=== PATIENT | male | born 1965 | race Caucasian/White ===

== ENCOUNTER → 2017-11-23 10:04 | Outpatient (POV) | payer OTHER, SELFPAY | PROVIDERS: PCP Orthopaedic Surgery; Visit Provider Specialist | DX: R20.0 Anesthesia of skin (principal); R20.2 Paresthesia of skin; G56.03 Carpal tunnel syndrome, bilateral upper limbs | CPT/HCPCS: 95886; 95910 ==

== ENCOUNTER → 2019-06-02 11:23 | Outpatient (CLI) | payer OTHER, SELFPAY ==
[2019-06-02 13:34] LABS: Alanine Aminotransferase 89 U/L (12-78); Albumin Level 4.2 gm/dL (3.4-5.0); Albumin/Globulin Ratio 1.2 (1.1-1.8); Alkaline Phosphatase 79 U/L (46-116); Anion Gap 9.7 mEq/L (5-15); Aspartate Amino Transferase 65 U/L (15-37); Bilirubin,Total 0.6 mg/dL (0.2-1.0); Blood Urea Nitrogen 8 mg/dL (7-18); Calcium 9.2 mg/dL (8.5-10.1); Carbon Dioxide 29 mmol/L (21.0-32.0); Chloride 99 mmol/L (98-107); Chol/HDL Ratio 7.8 (1-3.5); Cholesterol 241 mg/dL (140-200); Creatinine,Serum 0.82 mg/dL (0.70-1.30); Estimated Glomerular Filt Rate 98 ml/min (>60); GFR (African American) 119 ML/MIN (>60); Globulin 3.5 gm/dl (1.3-3.2); Glucose 102 mg/dL (74-106); HDL Cholesterol 31 mg/dL (27-67); Potassium 4.7 mmoL/L (3.5-5.1); Sodium 133 mmol/L (136-145); Total Protein,Serum 7.7 gm/dL (6.4-8.2); Triglycerides 853 mg/dL (30-200)
== END ==
PROVIDERS: Visit Provider Internal Medicine Adolescent Medicine
DX: E78.01 Familial hypercholesterolemia (principal); I10 Essential (primary) hypertension
CPT/HCPCS: 36415; 80053; 80061

== ENCOUNTER → 2019-06-16 09:11 | Outpatient (CLI) | payer OTHER, SELFPAY ==
[2019-06-16 10:17] LABS: Alanine Aminotransferase 69 U/L (12-78); Albumin Level 4.2 gm/dL (3.4-5.0); Alkaline Phosphatase 76 U/L (46-116); Aspartate Amino Transferase 27 U/L (15-37); Bilirubin,Direct 0.1 mg/dL (0.0-0.2); Bilirubin,Indirect 0.6 mg/dL (0.0-0.9); Bilirubin,Total 0.7 mg/dL (0.2-1.0); Chol/HDL Ratio 6.2 (1-3.5); Cholesterol 204 mg/dL (140-200); HDL Cholesterol 33 mg/dL (27-67); Total Protein,Serum 8.3 gm/dL (6.4-8.2)
[2019-06-16 10:18] LABS: Triglycerides 488 mg/dL (30-200)
== END ==
PROVIDERS: Visit Provider Internal Medicine Cardiovascular Disease
DX: I25.10 Atherosclerotic heart disease of native coronary artery without angina pectoris (principal); I10 Essential (primary) hypertension; E78.1 Pure hyperglyceridemia
CPT/HCPCS: 36415; 80061; 80076

== ENCOUNTER → 2019-06-21 09:15 | Outpatient (CLI) | payer OTHER, SELFPAY ==
--- NOTE | 2019-06-21 09:19 | CA_ITS ---
APPROVED REPORT EXAM: Comprehensive 2D, Doppler, and color-flow Echocardiogram Tax Director: Indy Faust CRT Ht: 6 ft 2 in Wt: 214lbs BSA: 2.24 BP: 133/84 mmHg Indications: Hyperlipidemia, Hypertension/HDD, CAD, stents 08, hx sinus ca, radiation, chemo 2D Dimensions LVOT 1.90 cm (M/F) 1.5-2.5 M-Mode Dimensions RVDd 2.80 cm (0.9-2.6) LA Diam 4.10 cm (1.9-4.0) LVDd 4.20 cm (3.5-5.7) Ao Diam 3.40 cm (2.0-3.7) LVDs 3.00 cm (3.5-5.7) AV Cusp 2.10 cm (1.5-2.6) IVSd 1.80 cm (0.6-1.1) PWd 1.20 cm (0.6-1.1) EF (Teich) 55.50% FS 28.60% EDV (Teich) 78.60 mL ESV (Teich) 35.00 mL LV Diastology E/A Ratio 0.80 MED E' 8.48 (< 7 cm/sec) E'/MED E' Ratio 7.90 (>14) LAT E' 9.07 (<10 cm/sec) E/LAT E' Ratio 7.30 (>14) Aortic Valve AoV Peak Ran. 136.00 (50-130 cm/s) AO Peak GR. 7.00 mmHg Mitral Valve MV E Max Ran. 66.60 (40-130 cm/s) MV A Velocity 88.40 (40-130 cm/s) E/A Ratio 0.80 Pulmonary Valve CA End VMAX 2.47 cm/s PA Accel Time 187.00 (>120 msec) Tricuspid Valve TR P. Velocity 239.00 cm/s RAP Estimate 10.00 mmHg RVSP 33.00 mmHg Left Ventricle Left atrium is mildly enlarged, left ventricle is normal size, mild concentric left ventricular hypertrophy, visually estimated ejection fraction 55% with no regional wall motion abnormality, grade 1 diastolic dysfunction seen without tissue Doppler evidence of raise left atrial pressure. Right Ventricle Right atrium and right ventricular normal size and contractility. Aortic Valve Aortic valve is minimally thickened and fibrosed. There is no aortic stenosis or aortic insufficiency. Mitral Valve Mitral valve is grossly normal, there is mild mitral regurgitation. Tricuspid Valve Tricuspid valve is grossly normal, there is mild tricuspid regurgitation. Tricuspid regurgitation jet velocity is inadequate for calculation of the right ventricular systolic pressure. Pulmonic Valve Pulmonic valve is poorly visualized. Great Vessels Aortic root is normal size. Pericardium No significant pericardial effusion noted. Conclusion 1. Mildly enlarged left atrium, normal left ventricular size, mild concentric left ventricular hypertrophy, visually estimated ejection fraction 55% with no regional wall motion abnormality. Grade 1 diastolic dysfunction seen without tissue Doppler evidence of raise left atrial pressure. 2. Mild mitral and tricuspid regurgitation. 3. No significant pericardial effusion noted. Electronically signed by : Willie Frank, 06/24/2019 10:52:40
--- NOTE | 2019-06-21 09:22 | XR_ITS ---
PROCEDURE: XR ANKLE WT BEARING LT MIN 3V CLINICAL INDICATION: bilateral foot pain Left ankle pain COMPARISON: No exams were available for comparison FINDINGS: No fracture or dislocation. There is slight decrease in the joint space. Otherwise negative IMPRESSION: . minimal osteoarthritic change Dictated by: Joel Leach MD 06/21/2019 18:11 Electronically signed by Joel Leach MD in [place] 06/21/2019 18:11
--- NOTE | 2019-06-21 09:22 | XR_ITS ---
PROCEDURE: XR ANKLE WT BEARING RT MIN 3V CLINICAL INDICATION: bilateral foot pain Ankle pain COMPARISON: No exams were available for comparison FINDINGS: No fracture, dislocation, lytic change, or blastic change evident. No significant degenerative change IMPRESSION: Negative right ankle Dictated by: Joel Leach MD 06/21/2019 18:11 Electronically signed by Joel Leach MD in [place] 06/21/2019 18:11
--- NOTE | 2019-06-21 09:22 | XR_ITS ---
PROCEDURE: XR FOOT WT BEARING LT 3V CLINICAL INDICATION: bilateral foot pain The in the COMPARISON: FTR3 FOOT-RT-3 VIEWS from 04/15/2016 FINDINGS: No fracture or dislocation. No lytic or blastic change. There is normal mineralization. The joint spaces are well-preserved. No significant degenerative/arthritic changes. No erosive changes evident. Other findings:There is mild pes planus. Increased density is present along the medial aspect of the nail bed of the great toe IMPRESSION: Pes planus otherwise negative Dictated by: Joel Leach MD 06/21/2019 18:18 Electronically signed by Joel Leach MD in [place] 06/21/2019 18:18
--- NOTE | 2019-06-21 09:22 | XR_ITS ---
PROCEDURE: XR FOOT WT BEARING RT 3V CLINICAL INDICATION: bilateral foot pain Foot pain COMPARISON: FTR3 FOOT-RT-3 VIEWS from 04/15/2016 FINDINGS: No fracture or dislocation. No lytic or blastic change. There is normal mineralization. The joint spaces are well-preserved. No significant degenerative/arthritic changes. No erosive changes evident.. Small rounded area of calcification is present the talonavicular joint dorsal medially nonspecific Other findings:There is mild pes planus. There is increased density along the nail bad medially at the great toe IMPRESSION: No acute finding. Mild pes planus Dictated by: Joel Leach MD 06/21/2019 18:13 Electronically signed by Joel Leach MD in [place] 06/21/2019 18:13
== END ==
PROVIDERS: Visit Provider Internal Medicine Cardiovascular Disease
DX: I25.10 Atherosclerotic heart disease of native coronary artery without angina pectoris (principal); E78.5 Hyperlipidemia, unspecified; I10 Essential (primary) hypertension; M79.672 Pain in left foot; M79.671 Pain in right foot; M25.572 Pain in left ankle and joints of left foot; M25.571 Pain in right ankle and joints of right foot; Z95.5 Presence of coronary angioplasty implant and graft
CPT/HCPCS: 73610; 73630; 93306

== ENCOUNTER → 2019-07-15 09:29 | Outpatient (CLI) | payer OTHER, SELFPAY ==
[2019-07-15 09:58] LABS: Alanine Aminotransferase 51 U/L (12-78); Alkaline Phosphatase 72 U/L (46-116); Aspartate Amino Transferase 28 U/L (15-37); Bilirubin,Direct 0.2 mg/dL (0.0-0.2); Bilirubin,Indirect 0.6 mg/dL (0.0-0.9); Bilirubin,Total 0.8 mg/dL (0.2-1.0); Chol/HDL Ratio 4.5 (1-3.5); Cholesterol 172 mg/dL (140-200); HDL Cholesterol 38 mg/dL (27-67); Total Protein,Serum 7.8 gm/dL (6.4-8.2)
[2019-07-15 10:07] LABS: Triglycerides 434 mg/dL (30-200)
== END ==
PROVIDERS: Visit Provider Internal Medicine Cardiovascular Disease
DX: E78.5 Hyperlipidemia, unspecified (principal); I10 Essential (primary) hypertension; I25.10 Atherosclerotic heart disease of native coronary artery without angina pectoris; Z95.5 Presence of coronary angioplasty implant and graft
CPT/HCPCS: 36415; 80061; 80076

== ENCOUNTER → 2019-11-21 14:43 | Outpatient (CLI) | payer OTHER, SELFPAY ==
[2019-11-21 17:31] LABS: Alanine Aminotransferase 63 U/L (12-78); Alkaline Phosphatase 71 U/L (46-116); Aspartate Amino Transferase 39 U/L (15-37); Bilirubin,Direct 0.2 mg/dL (0.0-0.2); Bilirubin,Indirect 0.4 mg/dL (0.0-0.9); Bilirubin,Total 0.6 mg/dL (0.2-1.0); Chol/HDL Ratio 4.4 (1-3.5); Cholesterol 123 mg/dL (140-200); HDL Cholesterol 28 mg/dL (27-67); Total Protein,Serum 7.3 g/dL (6.4-8.2)
[2019-11-21 17:43] LABS: Triglycerides 459 mg/dL (30-200)
== END ==
PROVIDERS: Physician Assistant; Visit Provider Internal Medicine Cardiovascular Disease
DX: E78.5 Hyperlipidemia, unspecified (principal); F10.20 Alcohol dependence, uncomplicated; I10 Essential (primary) hypertension; I25.10 Atherosclerotic heart disease of native coronary artery without angina pectoris; R53.83 Other fatigue; Z95.5 Presence of coronary angioplasty implant and graft
CPT/HCPCS: 36415; 80061; 80076

== ENCOUNTER → 2020-05-14 12:53 | Outpatient (CLI) | payer OTHER, SELFPAY ==
[2020-05-14 12:57] LABS: Adenovirus,PCR Not Detected (NotDetected); Bordetella Pertussis Not Detected (NotDetected); Chlamydophila Pneumoniae, PCR Not Detected (NotDetected); Coronavirus 229E Not Detected (NotDetected); Coronavirus NL63 Not Detected (NotDetected); Coronavirus OC43 Not Detected (NotDetected); Coronovirus HKU1,PCR Not Detected (NotDetected); Human Metapneumovirus Not Detected (NotDetected); Influenza A, PCR Not Detected (NotDetected); Influenza AH1, 2009 Not Detected (NotDetected); Influenza AH1, PCR Not Detected (NotDetected); Influenza AH3,PCR Not Detected (NotDetected); Influenza B, PCR Not Detected (NotDetected); Mycoplasma Pneumoniae, PCR Not Detected (NotDetected); Parainfluenza 1, PCR Not Detected (NotDetected); Parainfluenza 2, PCR Not Detected (NotDetected); Parainfluenza 3, PCR Not Detected (NotDetected); Parainfluenza 4, PCR Not Detected (NotDetected); Respiratory Syncytial Virus Not Detected (NotDetected)
--- NOTE | 2020-05-14 13:08 | XR_ITS ---
PROCEDURE: XR CHEST 2V CLINICAL HISTORY: BRONCHOPNEUMONIA,SINUSITIS,EXPOSURE TO COVID Cough COMPARISON: No exams were available for comparison FINDINGS: The cardiomediastinal silhouette and pulmonary vascularity are within normal limits. The lungs are clear without infiltrates, suspicious nodules, or pleural effusions. No acute bony abnormalities. IMPRESSION: No acute findings. Dictated by: Joel Leach MD 05/14/2020 14:36 Electronically signed by Joel Leach MD in [place] 05/14/2020 14:36
[2020-05-14 13:15] LABS: Basophils # 0.1 K/mm3 (0-0.2); Basophils % 0.9 % (0.1-2.0); Eosinophils # 0.3 K/mm3 (0.0-0.4); Eosinophils % 4.5 % (0.1-12.0); Hematocrit 42.4 % (42.0-52.0); Hemoglobin 15.2 g/dL (14.1-18.0); Lymphocytes # 0.9 K/mm3 (0.7-4.5); Lymphocytes % 15.1 % (10-50); Mean Corpuscular HGB Conc 35.9 g/dL (31.8-35.4); Mean Corpuscular Hemoglobin 33.8 pg (27.0-31.2); Mean Corpuscular Volume 94.2 fl (80-94); Mean Platelet Volume 7.2 fl (7.4-10.4); Monocytes # 0.4 K/mm3 (0.1-1.0); Monocytes % 7.3 % (1.7-9.3); Neutrophils # 4.1 K/mm3 (1.8-7.8); Neutrophils % 72.2 % (37.0-80.0); Platelet Count 276 K/mm3 (142-424); Red Cell Distribution Width 13.2 % (11.5-17.5); White Blood Count 5.7 K/mm3 (4.8-10.8)
[2020-05-14 13:35] LABS: Alanine Aminotransferase 60 U/L (12-78); Albumin Level 4.5 g/dl (3.5-5.0); Albumin/Globulin Ratio 1.5 (1.1-1.8); Alkaline Phosphatase 91 U/L (38-126); Anion Gap 14.9 mEq/L (5-15); Aspartate Amino Transferase 53 U/L (17-59); Bilirubin,Total 0.6 mg/dl (0.2-1.3); Blood Urea Nitrogen 9 mg/dl (9-20); Calcium 9.4 mg/dl (8.4-10.2); Carbon Dioxide 28 mmol/L (22.0-30.0); Chloride 99 mmol/L (98-107); Estimated Glomerular Filt Rate 88 ml/min (>60); GFR (African American) 106 ML/MIN (>60); Globulin 3.1 g/dL (1.3-3.2); Glucose 109 mg/dl (74-100); Potassium 4.9 mmoL/L (3.5-5.1); Sodium 137 mmol/L (136-145); Total Protein,Serum 7.6 g/dl (6.3-8.2)
[2020-05-14 17:12] LABS: Rhinovirus/Enterovirus Detected (NotDetected)
[2020-05-15 14:13] LABS: Covid-19 Nasal PCR Sendout Lex Not Detected
== END ==
PROVIDERS: Visit Provider Internal Medicine Adolescent Medicine
DX: Z20.828 Contact with and (suspected) exposure to other viral communicable diseases (principal); J18.0 Bronchopneumonia, unspecified organism; J01.01 Acute recurrent maxillary sinusitis; B97.19 Other enterovirus as the cause of diseases classified elsewhere
CPT/HCPCS: 36415; 71046; 80053; 85025; 87486; 87581; 87633; 87798; U0004

== ENCOUNTER → 2020-06-19 15:37 | Outpatient (CLI) | payer OTHER, SELFPAY ==
[2020-06-19 17:27] LABS: Alanine Aminotransferase 57 U/L (12-78); Albumin Level 4.3 g/dl (3.5-5.0); Alkaline Phosphatase 97 U/L (38-126); Aspartate Amino Transferase 47 U/L (17-59); Bilirubin,Indirect 0.5 mg/dL (0.0-0.9); Bilirubin,Total 0.5 mg/dl (0.2-1.3); Bilirubin,Unconjugated 0.5 mg/dL (0.0-1.1); Chol/HDL Ratio 5.8 (1-3.5); Cholesterol 208 mg/dl (140-200); HDL Cholesterol 36 mg/dl (40-60); Total Protein,Serum 7.2 g/dl (6.3-8.2)
[2020-06-19 17:38] LABS: Direct LDL Cholesterol 35.27 mg/dL (100-129)
[2020-06-19 18:00] LABS: Triglycerides 686 mg/dl (30-150)
== END ==
PROVIDERS: Visit Provider Nurse Practitioner Family
DX: E78.2 Mixed hyperlipidemia (principal); I25.10 Atherosclerotic heart disease of native coronary artery without angina pectoris; I10 Essential (primary) hypertension
CPT/HCPCS: 36415; 80061; 80076

== ENCOUNTER 2020-10-29 11:54 | Day surgery (SDC) | payer OTHER, SELFPAY ==
[2020-10-29] VITALS (13 sets, daily range): BP systolic 95–139; BP diastolic 53–96; PULSE 55–80; RESP 17–18; TEMP 36.7; O2SAT 94–98; BMI 28.0
--- NOTE | 2020-10-29 11:30 | IR_ITS ---
APPROVED REPORT Patient Location: Outpatient Food And Beverage Checker: JAY JAY Mcdaniels RT (R) PROCEDURES Left heart catheterization Left ventriculogram Selective coronary angiogram Drug-eluting stent deployment to the proximal dominant right coronary INDICATION Coronary artery disease, Unstable angina, Informed consent was obtained prior to the procedure. COMPLICATIONS NONE Estimated Blood Loss: LESS THAN 10 ML TECHNIQUE One percent lidocaine used to anesthetize the right anterior aspect of the wrist. The right radial artery was accessed via the Seldinger technique. A 6 Croatian sheath was placed in the right radial artery. 2.5 mg of verapamil, 800 mcg of nitroglycerin, 1mg Lidocaine and 5000 U Heparin were given through the arterial sheath. The trap catheter was also used to perform left heart catheterization, left ventriculogram and selective coronary angiogram. At the end of the diagnostic angiogram therapeutic heparin was administered giving a therapeutic ACT. And I Solange right guide catheter was used to intubate the right coronary artery and a BMW wire was placed distally. A 3 mm x 15 mm resolute lloyd stent was deployed at 20 jennie reducing the severe in-stent restenotic lesion to 0%. LEWIS-3 flow was present before and after the procedure. At the end the procedure the apparatus was removed the sheath was removed good hemostasis was achieved using TR banding patient was transferred to the postop holding area stable condition ANGIOGRAPHIC RESULTS The left main artery Normal The left anterior descending artery Is proximally normal and has a mid vessel 30 to 40% mostly eccentric stenosis The circumflex artery Is nondominant yet still large vessel with mid vessel 20 to 30% stenosis The right coronary artery Is a dominant vessel with a stent in the proximal to mid segment. The midportion of the stent has a 70% concentric in-stent restenotic lesion The VALIENTE ventriculogram reveals Normal 65% The left ventricular end-diastolic pressure 10 mmHg IMPRESSION Severe in-stent restenosis within the proximal dominant right coronary Successful stenting the proximal dominant right coronary severe disease reduced to 0% with 1 drug-eluting stent Mild to moderate mid LAD disease as described above Mild disease in the mid circumflex artery Normal ejection fraction Normal left ventricular end-diastolic pressure PLAN 1. Continue dual antiplatelet therapy 2. Avoidance of alcohol 3. Avoidance of tobacco products 4. LDL less than 55 5. Cardiac rehabilitation Electronically signed by : Mele Elena, 10/29/2020 14:39:47
[2020-10-29 12:08] LABS: Basophils # 0.1 K/mm3 (0-0.2); Basophils % 0.9 % (0.1-2.0); Eosinophils # 0.2 K/mm3 (0.0-0.4); Eosinophils % 2.8 % (0.1-12.0); Hematocrit 48.5 % (42.0-52.0); Hemoglobin 15.9 g/dL (14.1-18.0); Lymphocytes # 0.9 K/mm3 (0.7-4.5); Lymphocytes % 17.8 % (10-50); Mean Corpuscular HGB Conc 32.7 g/dL (31.8-35.4); Mean Corpuscular Hemoglobin 32.5 pg (27.0-31.2); Mean Corpuscular Volume 99.5 fl (80-94); Mean Platelet Volume 10.9 fl (7.4-10.4); Monocytes # 0.4 K/mm3 (0.1-1.0); Neutrophils # 3.8 K/mm3 (1.8-7.8); Neutrophils % 71.4 % (37.0-80.0); Platelet Count 294 K/mm3 (142-424); Red Blood Count 4.87 M/mm3 (4.60-6.20); Red Cell Distribution Width 13.8 % (11.5-17.5); White Blood Count 5.3 K/mm3 (4.8-10.8)
[2020-10-29 12:49] LABS: Anion Gap 12.5 mEq/L (5-15); Blood Urea Nitrogen 14 mg/dl (9-20); Calcium 9.8 mg/dl (8.4-10.2); Carbon Dioxide 29 mmol/L (22.0-30.0); Chloride 101 mmol/L (98-107); Creatinine Clearance Estimated 152 mL/min (50-200); Estimated Glomerular Filt Rate 101 ml/min (>60); GFR (African American) 122 ML/MIN (>60); Glucose 123 mg/dl (74-100); Potassium 4.5 mmoL/L (3.5-5.1); Sodium 138 mmol/L (136-145)
[2020-10-29 12:57] LABS: Coronavirus 19 IgG Antibody Negative (Negative); Coronavirus 19 IgM Antibody Negative (Negative)
[2020-10-29 15:32] LABS: CATHL Activated Clotting Time 336 SEC (74-125)
--- NOTE | 2020-10-29 16:20 | HMH.PHACLD ---
Jeremy Valdez has received discharge medication counseling on the following medications: PATIENT CURRENTLY IS TAKING LISINOPRIL 5 MG DAILY, ASPIRIN DR 81 MG DAILY, AND SIMVASTATIN 20 MG HS. MD STARTING BRILINTA 90 MG BID AT THIS TIME. MD NOT STARTING BETA NATALIE AT THIS TIME DUE TO LOW HR AND BP.
--- NOTE | 2020-10-29 18:35 | SUR.PHASEII ---
pt discharged after hours. 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 pt went home with tomorrows dose morning and night of brilinta and understands to take it and never miss a dose.
== END 2020-10-29 18:33 | disposition home or self-care (01) ==
LOC: CATHLAB 11:55
PROVIDERS: Urology; PCP Internal Medicine Adolescent Medicine; Visit Provider Internal Medicine
DX: I25.110 Atherosclerotic heart disease of native coronary artery with unstable angina pectoris (principal); T82.855A Stenosis of coronary artery stent, initial encounter; I10 Essential (primary) hypertension; E78.5 Hyperlipidemia, unspecified; Z79.82 Long term (current) use of aspirin; Z79.899 Other long term (current) drug therapy; Z88.8 Allergy status to other drugs, medicaments and biological substances
CPT/HCPCS: 36415; 80048; 85025; 85347; 86328; 92928; 93458; 99152; 99153; C1725; C1769; C1874; C9600; J1644; Q9967

== ENCOUNTER → 2021-02-05 10:50 | Outpatient (CLI) | payer OTHER, SELFPAY ==
[2021-02-05 11:57] LABS: Alanine Aminotransferase 33 U/L (12-78); Aspartate Amino Transferase 38 U/L (17-59); Bilirubin,Unconjugated 0.5 mg/dL (0.0-1.1)
[2021-02-05 11:58] LABS: Albumin Level 5.1 g/dl (3.5-5.0); Alkaline Phosphatase 70 U/L (38-126); Bilirubin,Direct 0.2 mg/dl (0.0-0.4); Bilirubin,Indirect 0.5 mg/dL (0.0-0.9); Bilirubin,Total 0.7 mg/dl (0.2-1.3); Chol/HDL Ratio 3.9 (1-3.5); Cholesterol 188 mg/dl (140-200); HDL Cholesterol 48 mg/dl (40-60); Total Protein,Serum 7.6 g/dl (6.3-8.2); Triglycerides 238 mg/dl (30-150); VLDL Cholesterol 48 mg/dL (0-40)
[2021-02-05 12:11] LABS: Direct LDL Cholesterol 83.12 mg/dL (100-129)
== END ==
PROVIDERS: Visit Provider Physician Assistant
DX: I11.9 Hypertensive heart disease without heart failure (principal); E11.9 Type 2 diabetes mellitus without complications
CPT/HCPCS: 36415; 80061; 80076

== ENCOUNTER → 2021-06-11 11:08 | Outpatient (CLI) | payer OTHER, SELFPAY ==
[2021-06-11 12:34] LABS: Prostate Specific Ag Screen 0.7 ng/ml (0.0-4.0)
== END ==
PROVIDERS: Visit Provider Urology
DX: Z12.5 Encounter for screening for malignant neoplasm of prostate (principal)
CPT/HCPCS: 36415; G0103

== ENCOUNTER → 2021-11-06 11:48 | Outpatient (CLI) | payer OTHER, SELFPAY ==
[2021-11-06 13:08] LABS: Alanine Aminotransferase 42 U/L (12-78); Albumin Level 4.8 g/dl (3.5-5.0); Alkaline Phosphatase 61 U/L (38-126); Aspartate Amino Transferase 52 U/L (17-59); Bilirubin,Direct 0.1 mg/dl (0.0-0.4); Bilirubin,Indirect 0.4 mg/dL (0.0-0.9); Bilirubin,Total 0.5 mg/dl (0.2-1.3); Bilirubin,Unconjugated 0.5 mg/dL (0.0-1.1); Chol/HDL Ratio 3.3 (1-3.5); Cholesterol 170 mg/dl (140-200); HDL Cholesterol 51 mg/dl (40-60); Total Protein,Serum 7.3 g/dl (6.3-8.2); Triglycerides 132 mg/dl (30-150); VLDL Cholesterol 26 mg/dL (0-40)
[2021-11-06 13:19] LABS: Direct LDL Cholesterol 82.64 mg/dL (100-129)
== END ==
PROVIDERS: Visit Provider Urology
DX: E78.2 Mixed hyperlipidemia (principal)
CPT/HCPCS: 36415; 80061; 80076

== ENCOUNTER → 2022-05-05 14:45 | Outpatient (CLI) | payer OTHER, SELFPAY ==
--- NOTE | 2022-05-05 14:50 | CT_ITS ---
FINAL REPORT TECHNIQUE: Thin section axial images were obtained through the paranasal sinuses without contrast. CLINICAL HISTORY: SINONASAL CARCINOMA,DIZZINESS COMPARISON: No prior FINDINGS: There are changes from frontal craniotomy. There has also been extensive sinus surgery. Portions of the nasal septum and nasal cavity have also been removed. There is hardware along the inferior right orbit and lateral right nasal bone. Hypodensities in the inferior frontal lobes bilaterally are likely chronic. There is soft tissue density within the frontal sinuses which may be related to prior surgery. An abnormal soft tissue mass cannot be excluded. There is mild mucoperiosteal thickening along the sphenoid sinus. There is cortical thickening of the facial bones along the sinuses which could be related to radiation therapy or other treatment for sinus carcinoma. There is a small amount of fluid within the left mastoid air cells. There is a small cutaneous nodule of the right parietal scalp on axial image 47 measuring 9 mm. This is nonspecific. The globes appear intact. Remaining soft tissues are without acute abnormality. IMPRESSION: 1. Extensive postoperative changes to the facial bones and sinuses in this patient with a history of sinus cancer. 2. Soft tissue density within the frontal sinuses may be related to surgery and packing. Residual or recurrent mass is not excluded. Recommend comparison with prior exams. Reviewed, Interpreted and Dictated by Leonor Mayo MD Transcribed by Arlette Briscoe Authenticated and [facility]
== END ==
PROVIDERS: PCP Internal Medicine Adolescent Medicine; Visit Provider Otolaryngology
DX: C31.9 Malignant neoplasm of accessory sinus, unspecified (principal); R42 Dizziness and giddiness
CPT/HCPCS: 70486

== ENCOUNTER → 2022-12-04 09:55 | Outpatient (CLI) | payer OTHER, SELFPAY ==
[2022-12-04 10:54] LABS: Alanine Aminotransferase 46 U/L (12-78); Albumin Level 4.6 g/dl (3.5-5.0); Alkaline Phosphatase 76 U/L (38-126); Aspartate Amino Transferase 41 U/L (17-59); Bilirubin,Direct 0.3 mg/dl (0.0-0.4); Bilirubin,Indirect 0.4 mg/dL (0.0-0.9); Bilirubin,Total 0.7 mg/dl (0.2-1.3); Bilirubin,Unconjugated 0.4 mg/dL (0.0-1.1); Chol/HDL Ratio 4.2 (1-3.5); Cholesterol 169 mg/dl (140-200); HDL Cholesterol 40 mg/dl (40-60); Total Protein,Serum 7.4 g/dl (6.3-8.2)
[2022-12-04 10:59] LABS: Triglycerides 447 mg/dl (30-150)
[2022-12-04 11:05] LABS: Direct LDL Cholesterol 65.64 mg/dL (100-129)
== END ==
PROVIDERS: PCP Internal Medicine Adolescent Medicine; Visit Provider Nurse Practitioner
DX: I11.9 Hypertensive heart disease without heart failure (principal); E78.1 Pure hyperglyceridemia; E78.2 Mixed hyperlipidemia; F10.20 Alcohol dependence, uncomplicated; I10 Essential (primary) hypertension; Z95.5 Presence of coronary angioplasty implant and graft
CPT/HCPCS: 36415; 80061; 80076

== ENCOUNTER → 2023-04-17 12:25 | Outpatient (CLI) | payer OTHER, SELFPAY ==
--- NOTE | 2023-04-17 12:25 | NM_ITS ---
APPROVED REPORT Exam: Nuclear Stress Test Indication: chest pain Patient Location: Outpatient Stress Tech: Estefania Lyles [place] Tech:Laura Zamora ABIAlex RT(R)(N) Ht: 6 ft 2 in Wt: 203 lbs HR: 83 bpm BP: 166/113 mmHg BSA: 2.19 m2 Rhythm: NSR TID: 1.11 BMI: 26.0 History: chest pain Procedure: Patient exercised on Major protocol 7:30 minutes and sec, resting heart rate 83 bpm, resting blood pressure 166/113 mmHg, with exercise maximum heart rate achived was 138 bpm which is 85 % of the maximum predicted heart rate and blood pressure was 187/104 mmHg. Test was stopped due to fatigue. Patient denied any complaint of chest pain. Patient has average exercise capacity, achieved 10.1 METs of workload on treadmill, the blood pressure response to exercise was normal. The patient was unable to lay on his abdomen for prone images. Cardiac Stress and Resting SPECT Images: Cardiac Stress and Resting SPECT images were obtained using technetium 99m Myoview 32.8 mCi stress and 10.55 mCi at rest. The patient was unable to lay on his abdomen for prone images. Prone images were therefore not obtained. This may affect the diagnostic interpretation of the study findings. Resting and stress imaging in supine position demonstrate no evidence of fixed or reversible perfusion defects. Gated imaging demonstrates a normal global and regional LV systolic function. LVEF is calculated at 66%. Conclusion: The patient was unable to lay on his abdomen for prone images. Prone images were therefore not obtained. This may affect the diagnostic interpretation of the study findings. Resting and stress imaging in supine position demonstrate no evidence of fixed or reversible perfusion defects. Gated imaging demonstrates a normal global and regional LV systolic function. LVEF is calculated at 66%. Electronically signed by : Em Steward, 04/25/2023 15:35:08
--- NOTE | 2023-04-17 12:25 | CA_ITS ---
APPROVED REPORT Exam: Exercise Treadmill Technologist: Estefania Lyles, Ht: 6 ft 3 in Wt: 210 lbs BSA: 2.24 m2 HR: 83 bpm BP: 166/113 mmHg Rhythm: NSR Medical History Medical History: HTN, Hyperlipidemia Medications: Lisinopril,,,,, Aspirin,,,,, Simvastatin,,,,, FeNOfibrate,,,,, LovasA,,,,, NanOCRYSTALIZED,,,,, Allergies: ATORVASTATIN Cardiac Risk Factors: HTN, Hyperlipidemia, Smoking Stress Test Details Test: Major HR Resting HR: 83 bpm Max Heart Rate (APMHR): 163 bpm Max HR Achieved: 138 bpm Target HR (85% APMHR): 139 bpm % of APMHR: 85 Recovery HR: 90 bpm HR response to stress: Normal HR response to stress BP Resting BP: 166.0/113 mmHg Max BP: 187/104 mmHg Recovery BP: 142.0/93.0 mmHg BP response to stress: Normal blood pressure response to stress. ECG Resting ECG: NSR, POSSIBLE INFERIOR AK OF INDETERMINATE AGE, EARLY REPOLARIZATION Stress ECG: <[address] DEPRESSION IN LATERAL LEADS Arrhythmia: NONE Recovery ECG: RETURN TO BASELINE WITHIN 3 MINUTES OF RECOVERY Recovery Arrhythmia: NONE Clinical Exercise duration: 07:30 min Highest Stage Achieved: Exercise capacity: 10.1 METs Overall Exercise Capacity for Age: Average Stress ECG Conclusion MAX HR: 138 % OF PM: 85% MAX BP: 187/104 METS: 10.1 THE PATIENT WAS ABLE TO EXERCISE FOR 7M, 30 S, ACHIEVING A TOTAL OF 10.1 METS. HE HAS AN AVERAGE EXERCISE CAPACITY COMPARED TO AGE AND SEX MATCHEED PEERS. HE HAS A NORMAL HR AND BP RESPONSE TO EXERCISE. TEST STOPPED DUE TO: SOA, LEG FATIGUE. HE DENIED ANY CHEST PAIN BASELINE ECG DEMONSTRATES A NORMAL SINUS RHYTHM, T-WAVE CHANGES IN THE INFERIOR LEADS, EARLY REPOLARIZATION PATTERN AT PEAK STRESS, THERE WAS < 1MM UPSLOPING ST DEPRESSION IN THE LATERAL LEADS. THESE FINDINGS ARE NON-SPECIFIC, BUT MAY REPRESENT POSSIBLE ISCHEMIA. CONCLUSION POSSIBLE ISCHEMIA IS PRESENT ON ECG STRESS TEST MYOVIEW IMAGES REPORTED SEPARATELY Test Summary REST . . . . . . . Standing REST . . . . . . . Sitting REST 03:49 0.0 0.0 83 . 166/113 . . Stage 1 01:00 10.0 1.7 101 . . . . Stage 1 02:00 10.0 1.7 109 . . . . Stage 1 03:00 10.0 1.7 108 . 168/ 98 . . Stage 2 01:00 12.0 2.5 116 . . . . Stage 2 02:00 12.0 2.5 120 . . . . Stage 2 03:00 12.0 2.5 122 . 180/ 96 . . Stage 3 01:00 14.0 3.4 132 . . . . Stage 3 01:30 14.0 3.4 136 . . . Stop exercise at 07:30 RECOVERY 01:00 0.0 0.0 120 . . . . RECOVERY 02:00 0.0 0.0 102 . 187/104 . . RECOVERY 03:00 0.0 0.0 96 . 154/ 95 . . RECOVERY 04:00 0.0 0.0 90 . 154/ 95 . . RECOVERY 05:00 0.0 0.0 90 . 142/ 93 . . RECOVERY 05:19 0.0 0.0 87 . 142/ 93 . . Electronically signed by : Em Steward, 04/25/2023 15:30:55
== END ==
PROVIDERS: PCP Internal Medicine Adolescent Medicine; Visit Provider Physician Assistant
DX: R07.89 Other chest pain (principal); I25.10 Atherosclerotic heart disease of native coronary artery without angina pectoris; I10 Essential (primary) hypertension; E78.1 Pure hyperglyceridemia; E78.5 Hyperlipidemia, unspecified; F10.20 Alcohol dependence, uncomplicated; Z95.5 Presence of coronary angioplasty implant and graft
CPT/HCPCS: 78452; 93017; A9502

== ENCOUNTER 2023-11-21 04:22 | Emergency (ER) | payer OTHER, SELFPAY ==
[2023-11-21 04:24] VITALS: BP 127/84; PULSE 113; RESP 22; TEMP 37.6; O2SAT 92; BMI 28.8
[2023-11-21 04:32] LABS: Coronavirus 19, PCR Not Detected (NotDetected); Influenza A, PCR Not Detected (NotDetected); Influenza B, PCR Not Detected (NotDetected)
--- NOTE | 2023-11-21 04:46 | ED_ITS ---
Discharge Plan Disposition Patient Disposition: Home, Self-Care Condition: Good Prescriptions Prescriptions: New knufhfescbcjqct-cwjyrmugi-BV [Bromfed DM] 2-30-10 mg/5 mL syrup 5 ml PO Q6H PRN (Reason: cold symptoms) Qty: 118 0RF cetirizine [Zyrtec] 10 mg tablet 10 mg PO DAILY Qty: 30 0RF fluticasone propionate [Flonase Allergy Relief] 50 mcg/actuation spray,suspension 1 spray intranasal BID Qty: 16 0RF Rx Instructions: administer into each nostril No Action mupirocin 2 % ointment 1 applic TP BID Qty: 15 1RF Rx Instructions: Apply to affected area up to twice daily aspirin 325 mg tablet 325 mg PO DAILY simvastatin 20 mg tablet See Rx Instructions .ROUTE .COMPLEX Qty: 90 1RF Dose Instruction: TAKE 1 TABLET BY MOUTH DAILY Rx Instructions: TAKE 1 TABLET BY MOUTH DAILY lisinopril 5 mg tablet 5 mg PO DAILY Qty: 90 3RF fenofibrate nanocrystallized 48 mg tablet 48 mg PO DAILY Qty: 30 11RF omega-3 acid ethyl esters [Lovaza] 1 gram capsule 2 cap PO BID Qty: 180 3RF Referrals Follow up/Referrals: James Gipson MD [Primary Care Provider] - See instructions Activity Restrictions/Add. Instructions Additional Instructions/Restrictions: You were evaluated in the emergency department today. Please pick pulling machine tender your prescriptions at the pharmacy and take them as prescribed. You may also take Tylenol every 4 hours and ibuprofen every 6 hours for fever and bodyaches. Follow-up with your primary care provider over the next week for reassessment. Return to the emergency department for new or worsening symptoms. Clinical Impressions Clinical Impression: Viral URI with cough Instructions Patient Instructions: DI for Cough -- Adult, DI for Viral Upper Respiratory Infection -- Adult Discharge ED Provider: Sally Agee General Adult HPI General Chief complaint: Upper Respiratory Infection Stated complaint: SOA, fever, cough Time Seen by Provider: 11/21/23 04:33 Mode of Arrival: Ambulatory Source of Information: Patient and Spouse Limitations: No Limitations Description of Symptoms (Recalled from ER Triage Doc. by RN): pt reports cough congestion since Thursday, seen Dr Prakash was diagnosed with Bronchitis and given Doxy, reports getting worse, difficulty breathing and fever. 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 Patient has had fevers, body aches, and cough since Thursday. He saw his primary care provider and was diagnosed with bronchitis. He was given doxycycline and sent home. Since midnight, he has been coughing nonstop and has not been able to sleep. He was given promethazine cough syrup at home but has not had good improvement. He also has had a fever. No Tylenol and ibuprofen taken recently. No other concerns noted at this time. Related Data Home Medications Medication Instructions Recorded Confirmed aspirin 325 mg tablet 325 mg PO DAILY 12/04/22 04/15/23 Previous Rx's Medication Instructions Recorded mupirocin 2 % topical ointment 1 applic topical BID cellulitis 04/07/22 #15 grams simvastatin 20 mg tablet See Rx Instructions .Route 09/03/22 .COMPLEX #90 tabs lisinopril 5 mg tablet 5 mg PO DAILY BLOOD PRESSURE #90 01/30/23 tabs fenofibrate nanocrystallized 48 mg 48 mg PO DAILY #30 tabs 06/29/23 tablet omega-3 acid ethyl esters 1 gram 2 cap PO BID #180 caps 07/30/23 capsule (Lovaza) tlokwntvxzcwrmw-idsxxvotlwwdlwv-OF 5 ml PO Q6H PRN cold symptoms #118 11/21/23 2 mg-30 mg-10 mg/5 mL oral syrup mL (Bromfed DM) cetirizine 10 mg tablet (Zyrtec) 10 mg PO DAILY #30 tabs 11/21/23 fluticasone propionate 50 1 spray intranasal BID #16 grams 11/21/23 mcg/actuation nasal spray,suspension (Flonase Allergy Relief) Allergies Allergy/AdvReac Type Severity Reaction Status Date / Time atorvastatin Allergy Mild Verified 04/15/23 09:39 [facility] Disclaimer: The information contained in this section may have been updated after the patient was seen, as this information can be updated by other users. Medical History Alcoholism CAD (coronary artery disease) Fatigue HLD (hyperlipidemia) HTN (hypertension) Surgical History Stented coronary artery Social History Smoking Status: Never smoker second hand exposure: No alcohol intake: current substance use type: denies use current occupational status: employed Travel in the last 8 weeks: Inside the [place] household members: spouse and family housing: house current occupational exposures/hazards: Yes caffeine: Yes ROS Obtained: Yes All systems reviewed & no additional complaints except as documented Physical Exam General General appearance: alert and in no apparent distress Head Head exam: atraumatic and normocephalic Eye Eye exam: Present normal appearance, PERRL and EOMI ENT ENT exam: Present normal exam, normal oropharynx, mucous membranes moist and normal external ear exam Neck Neck exam: Present normal inspection, full ROM and trachea midline; Absent tenderness Chest Chest inspection: Present normal inspection and symmetric chest wall rise; Absent tenderness Respiratory Respiratory exam: Present normal lung sounds bilaterally; Absent respiratory distress, wheezes, stridor or accessory muscle use Cardiovascular Cardiovascular exam: Present normal rhythm and tachycardia Abdominal Exam Abdominal exam: Present soft; Absent distention, tenderness or guarding Extremities Exam Extremities exam: Present normal inspection, full ROM and normal capillary refill; Absent tenderness or edema Back Exam Back exam: Present normal inspection and full ROM; Absent tenderness Neurological Exam Neurological exam: Present alert, oriented X3, CN II-XII intact and normal gait; Absent motor sensory deficit Psychiatric Psychiatric exam: Present normal affect and normal mood Skin Skin exam: Present warm and dry Medical Decision Making Medical Records Medical records reviewed: Yes I reviewed the patient's medical records. Guille Inquiry Pt receiving controlled substance: No Vital Signs: 11/21/23 04:24 11/21/23 04:56 11/21/23 04:56 Temperature 99.7 F H Temperature Source Oral Pulse Rate 105 H Pulse Rate [Right] 113 H Respiratory Rate 22 Blood Pressure Blood Pressure [Right Arm] 127/84 Blood Pressure Mean [Right Arm] 98 Blood Pressure Source Blood Pressure Source [Right Arm] Automatic Cuff Blood Pressure Position Blood Pressure Position [Right Arm] Sitting 02 Sat by Pulse Oximetry 92 L 93 L Oxygen Delivery Method Room Air Room Air 11/21/23 04:56 11/21/23 06:45 Temperature 98.7 F Temperature Source Oral Pulse Rate 109 H 80 Pulse Rate [Right] Respiratory Rate 16 Blood Pressure 160/87 H Blood Pressure [Right Arm] Blood Pressure Mean [Right Arm] Blood Pressure Source Automatic Cuff Blood Pressure Source [Right Arm] Blood Pressure Position Sitting Blood Pressure Position [Right Arm] 02 Sat by Pulse Oximetry Oxygen Delivery Method Room Air Lab Data Lab results reviewed: Yes I reviewed the patient's lab results. Lab Results 11/21/23 04:30: Chlamy pneumoniae PCR TNP, Adenovirus (PCR) Not detected, B. pertussis DNA (PCR) TNP, Coronavirus OC43 (PCR) Not detected, Coronavirus HKU1 (PCR) Not detected, Coronavirus 229E (PCR) Not detected, SARS-CoV-2 (PCR) Not detected 11/21/23 04:30: SARS-CoV-2 (PCR) Not detected, Coronavirus NL63 (PCR) Detected A , Human Metapneumovir PCR Not detected, Influenza A (H1) PCR Not detected, Influ A (H1N1/09) PCR Not detected, Influenza A (H3) PCR Not detected, Influenza Type A (PCR) Not detected, Influenza A Untype (PCR) Not detected, Influenza Type B (PCR) Not detected 11/21/23 04:30: Influenza Type B (PCR) Not detected, M. pneumoniae (PCR) TNP, Parainfluenza 1 (PCR) Not detected, Parainfluenza 2 (PCR) Not detected, Parainfluenza 3 (PCR) Not detected, Parainfluenza 4 (PCR) Not detected, RSV (PCR) Detected A, Entero/Rhino (PCR) Not detected 11/21/23 05:00: VBG pH 7.43 H, VBG pCO2 29.6 L, VBG pO2 76.8 H, VBG HCO3 19.2 L, VBG Total CO2 20.2 L, VBG O2 Saturation 95.4 H, VBG Base Excess -5.0 L 11/21/23 05:16: WBC 7.9, RBC 4.12 L, Hgb 13.6 L, Hct 40.1 L, MCV 97.3 H, MCH 33.1 H, MCHC 34.0, RDW 12.9, Plt Count 259, MPV 7.5, Neut % (Auto) 80.2 H, Lymph % (Auto) 9.8 L, [place] % (Auto) 5.7, Eos % (Auto) 3.7, Baso % (Auto) 0.6, Neut # (Auto) 6.3, Lymph # (Auto) 0.8, [place] # (Auto) 0.5, Eos # (Auto) 0.3, Baso # (Auto) 0.1, Sodium 132 L, Potassium 4.1, Chloride 102, Carbon Dioxide 21 L, Anion Gap 13.1, BUN 8 L, Creatinine 0.70, Estimated Creat Clear 163, Estimated GFR 116, Est GFR ( Amer) 141, Glucose 98, Lactate 1.1, Calcium 9.0, Total Bilirubin 0.3, AST 42, ALT 39, Alkaline Phosphatase 71, Total Protein 7.6, Albumin 4.4, Globulin 3.2, Albumin/Globulin Ratio 1.4 11/21/23 05:16 11/21/23 05:16 Orders (Tests/Meds): ED MEDICATIONS Discontinued Medications Generic Name Dose Route Start Last Admin Trade Name Freq PRN Reason Stop Dose Admin Acetaminophen 1,000 mg 11/21/23 04:39 11/21/23 04:54 Acetaminophen 500mg Tab PO 11/21/23 04:40 1,000 mg ONCE ONE Administration Lactated Ringer's 2,400 mls @ 1,200 mls/hr 11/21/23 05:04 11/21/23 05:25 Lactated Ringer's 1000 Ml Bag 30 ml/kg infuse over 2 hr (2400 ml) 11/21/23 07:03 1,200 mls/hr IV Administration .Q2H ONE Ketorolac Tromethamine 30 mg 11/21/23 04:39 11/21/23 04:53 Ketorolac 30mg/Ml Vial IM 11/21/23 04:40 30 mg ONCE ONE Administration Lidocaine HCl 5 ml 11/21/23 04:39 11/21/23 04:54 Lidocaine 4% Topical Soln 1ml TP 11/21/23 04:40 5 ml ONCE ONE Administration ORDERS Category Date Time Status XR chest 2V Stat Exams 11/21/23 04:58 Taken Complete Blood Count Auto Diff Stat Lab 11/21/23 05:16 Completed Comprehensive Metabolic Panel Stat Lab 11/21/23 05:16 Completed Full Resp Panel w/COVID ([facility]) Routine Lab 11/21/23 04:30 Completed Lactic Acid Stat Lab 11/21/23 05:16 Completed Rapid PCR Covid and Flu A/B Stat Lab 11/21/23 05:37 Ordered Blood Culture Stat Micro 11/21/23 05:37 Ordered Venous Blood Gas Stat RT 11/21/23 05:37 Ordered Medical Decision Narrative: In summary, this patient is a 58-year-old male presenting to the Emergency Department for evaluation of 5 to 6 days of upper respiratory symptoms. He was prescribed doxycycline by his primary care provider 3 days ago. Differential diagnoses considered include but are not limited to viral syndrome, pneumonia, respiratory failure, reactive airway disease, asthma, COPD. Ruling out the most morbid conditions drove assessment. On exam, the patient is nontoxic-appearing. Lungs are clear to auscultation bilaterally. He does have a irritating dry, hacking cough. Workup included viral swab. I considered obtaining chest x-ray to assess cardiopulmonary status, however given lack of adventitious lung sounds, i do not feel this would mash filter cloth changer. His primary care provider also already started him on antibiotics. I do feel this is likely viral. On reassessment, the patient states that he is not feeling much better. He is negative for COVID and flu. Family expresses great concern and wanted to know what exactly is going on. They request chest x-ray, which she is supposed to get yearly. X-ray and screening labs for sepsis were ordered given he is tachypneic, tachycardic, and febrile. I independently interpreted x-ray prior to the radiologist read and noted no large focal consolidation concerning for pneumonia. Please see their read for final interpretation. Labs were obtained that demonstrated elevation white blood cell count, no significant leukocytosis, and no other concerns. He does have a mild respiratory alkalosis, likely from hyperventilation. Patient was given sepsis bolus of IV fluids, though I am not concerned for sepsis based on labs. On reassessment, patient is resting, with reassuring vital signs. They note that they recall that their granddaughter has RSV. I feel this is likely the cause of his symptoms, or some other upper respiratory viral infection. Patient is not requiring oxygen and has reassuring vital signs on cardiac telemetry after control of his fever. Given reassuring history, exam, and workup, feel that he is appropriate for discharge with instructions for supportive management of viral syndrome. Critical Care Critical Care Time Critical Care Time: No
[2023-11-21] MEDS: KETOROLAC 30MG/ML VIAL 30 MG IM (04:53)
[2023-11-21] MEDS: ACETAMINOPHEN 500MG TAB 1000 MG PO (04:54)
[2023-11-21] MEDS: LIDOCAINE 4% TOPICAL SOLN 1ML 5 ML TP (04:54)
[2023-11-21 04:56] VITALS: PULSE 105; PULSE 109; O2SAT 93
--- NOTE | 2023-11-21 04:58 | XR_ITS ---
PROCEDURE INFORMATION: Exam: XR Chest Exam date and time: 11/21/2023 5:06 AM Age: 58 years old Clinical indication: Cough; Additional info: Cough, SOA TECHNIQUE: Imaging protocol: Radiologic exam of the chest. Views: 2 views. COMPARISON: DX XR CHEST 2V 05/14/2020 1:25 PM FINDINGS: Lungs: Minimal left basilar atelectasis versus pneumonia. Pleural spaces: No significant costophrenic angle blunting. No pneumothorax. Heart/Mediastinum: Heart size is normal. Vasculature: Mild atherosclerotic tortuosity of the thoracic aorta. Bones/joints: No acute osseous abnormality. IMPRESSION: Minimal left basilar atelectasis versus pneumonia.
[2023-11-21 05:06] LABS: Adenovirus,PCR Not Detected (NotDetected); Coronavirus 19, PCR Not Detected (NotDetected); Coronavirus 229E Not Detected (NotDetected); Coronavirus OC43 Not Detected (NotDetected); Coronovirus HKU1,PCR Not Detected (NotDetected); Human Metapneumovirus Not Detected (NotDetected); Influenza A, PCR Not Detected (NotDetected); Influenza AH1, 2009 Not Detected (NotDetected); Influenza AH1, PCR Not Detected (NotDetected); Influenza AH3,PCR Not Detected (NotDetected); Influenza B, PCR Not Detected (NotDetected); Parainfluenza 1, PCR Not Detected (NotDetected); Parainfluenza 2, PCR Not Detected (NotDetected); Parainfluenza 3, PCR Not Detected (NotDetected); Parainfluenza 4, PCR Not Detected (NotDetected); Rhinovirus/Enterovirus Not Detected (NotDetected)
--- NOTE | 2023-11-21 05:14 | PC.NURSE ---
pt to radiology
[2023-11-21 05:25] LABS: Basophils # 0.1 K/mm3 (0-0.2); Basophils % 0.6 % (0.1-2.0); Eosinophils # 0.3 K/mm3 (0.0-0.4); Eosinophils % 3.7 % (0.1-12.0); Hematocrit 40.1 % (42.0-52.0); Hemoglobin 13.6 g/dL (14.1-18.0); Lymphocytes # 0.8 K/mm3 (0.7-4.5); Lymphocytes % 9.8 % (10-50); Mean Corpuscular Hemoglobin 33.1 pg (27.0-31.2); Mean Corpuscular Volume 97.3 fl (80-94); Mean Platelet Volume 7.5 fl (7.4-10.4); Monocytes # 0.5 K/mm3 (0.1-1.0); Monocytes % 5.7 % (1.7-9.3); Neutrophils # 6.3 K/mm3 (1.8-7.8); Neutrophils % 80.2 % (37.0-80.0); Platelet Count 259 K/mm3 (142-424); Red Blood Count 4.12 M/mm3 (4.60-6.20); Red Cell Distribution Width 12.9 % (11.5-17.5); White Blood Count 7.9 K/mm3 (4.8-10.8)
[2023-11-21] MEDS: LACTATED RINGERS 1000ML 2,400 ML 1200 ML IV (05:25)
[2023-11-21 05:26] LABS: VBG HCO3 19.2 mmol/L (23-30); VBG Oxygen Saturation 95.4 % (50-70); VBG PCO2 29.6 mmol/L (35-51); VBG PH 7.43 mmol/L (7.31-7.41); VBG PO2 76.8 mmol/L (28-40); VBG Total CO2 20.2 mmol/L (23-27)
[2023-11-21 05:30] LABS: Chloride 102 mmol/L (98-107); Potassium 4.1 mmoL/L (3.5-5.1); Sodium 132 mmol/L (136-145)
[2023-11-21 05:32] LABS: Alanine Aminotransferase 39 U/L (12-78); Aspartate Amino Transferase 42 U/L (17-59); Blood Urea Nitrogen 8 mg/dl (9-20); Creatinine Clearance Estimated 163 mL/min (50-200); Estimated Glomerular Filt Rate 116 ml/min (>60); GFR (African American) 141 ML/MIN (>60); Lactic Acid 1.1 mmol/L (0.7-2.1)
[2023-11-21 05:33] LABS: Albumin Level 4.4 g/dl (3.5-5.0); Albumin/Globulin Ratio 1.4 (1.1-1.8); Alkaline Phosphatase 71 U/L (38-126); Anion Gap 13.1 mEq/L (5-15); Bilirubin,Total 0.3 mg/dl (0.2-1.3); Carbon Dioxide 21 mmol/L (22.0-30.0); Globulin 3.2 g/dL (1.3-3.2); Glucose 98 mg/dl (74-100); Total Protein,Serum 7.6 g/dl (6.3-8.2)
--- NOTE | 2023-11-21 05:38 | PC.NURSE ---
First set of blood cultures collected per protocol and sent. Time 0515
[2023-11-21 06:21] LABS: Coronavirus NL63 Detected (NotDetected); Respiratory Syncytial Virus Detected (NotDetected)
[2023-11-21 06:45] VITALS: BP 160/87; PULSE 80; RESP 16; TEMP 37.1; O2SAT 99
== END 2023-11-21 06:46 | disposition home or self-care (01) ==
PROVIDERS: Emergency Provider Emergency Medicine; PCP Internal Medicine Adolescent Medicine
DX: J06.9 Acute upper respiratory infection, unspecified (principal); R50.9 Fever, unspecified; R05.9 Cough, unspecified; R06.89 Other abnormalities of breathing; I10 Essential (primary) hypertension; E78.5 Hyperlipidemia, unspecified; I25.10 Atherosclerotic heart disease of native coronary artery without angina pectoris; Z85.22 Personal history of malignant neoplasm of nasal cavities, middle ear, and accessory sinuses; R00.0 Tachycardia, unspecified
CPT/HCPCS: 71046; 80053; 82803; 83605; 85025; 87040; 87632; 87635; 87636; 96360; 96361; 96372; 99285

== ENCOUNTER 2024-03-23 09:41 | Outpatient (CLI) | payer OTHER, SELFPAY ==
[2024-03-23 10:00] LABS: Basophils # 0.1 K/mm3 (0-0.2); Basophils % 0.7 % (0.1-2.0); Eosinophils # 0.3 K/mm3 (0.0-0.4); Eosinophils % 4.4 % (0.1-12.0); Hematocrit 42.1 % (42.0-52.0); Hemoglobin 14.2 g/dL (14.1-18.0); Lymphocytes % 15.3 % (10-50); Mean Corpuscular HGB Conc 33.8 g/dL (31.8-35.4); Mean Corpuscular Volume 97.8 fl (80-94); Mean Platelet Volume 7.4 fl (7.4-10.4); Monocytes # 0.4 K/mm3 (0.1-1.0); Monocytes % 6.6 % (1.7-9.3); Neutrophils # 4.8 K/mm3 (1.8-7.8); Neutrophils % 72.9 % (37.0-80.0); Platelet Count 274 K/mm3 (142-424); Red Blood Count 4.31 M/mm3 (4.60-6.20); Red Cell Distribution Width 13.6 % (11.5-17.5); White Blood Count 6.6 K/mm3 (4.8-10.8)
[2024-03-23 10:13] LABS: Chloride 101 mmol/L (98-107); Potassium 4.2 mmoL/L (3.5-5.1); Sodium 136 mmol/L (136-145)
[2024-03-23 10:15] LABS: Alanine Aminotransferase 52 U/L (12-78); Anion Gap 12.2 mEq/L (5-15); Aspartate Amino Transferase 48 U/L (17-59); Bilirubin,Unconjugated 0.5 mg/dL (0.0-1.1); Blood Urea Nitrogen 10 mg/dl (9-20); Carbon Dioxide 27 mmol/L (22.0-30.0); Estimated Glomerular Filt Rate 99 ml/min (>60); GFR (African American) 120 ML/MIN (>60)
[2024-03-23 10:16] LABS: Albumin Level 4.5 g/dl (3.5-5.0); Alkaline Phosphatase 72 U/L (38-126); Bilirubin,Indirect 0.5 mg/dL (0.0-0.9); Bilirubin,Total 0.5 mg/dl (0.2-1.3); Calcium 9.3 mg/dl (8.4-10.2); Chol/HDL Ratio 4.6 (1-3.5); Cholesterol 209 mg/dl (140-200); Glucose 96 mg/dl (74-100); HDL Cholesterol 45 mg/dl (40-60); Total Protein,Serum 7.3 g/dl (6.3-8.2); Triglycerides 353 mg/dl (30-150); VLDL Cholesterol 71 mg/dL (0-40)
[2024-03-23 10:27] LABS: Direct LDL Cholesterol 96.37 mg/dL (100-129)
[2024-03-23 10:33] LABS: Free T4 (Free Thyroxine) 0.84 ng/dl (0.78-2.19)
== END 2024-03-23 23:59 | disposition home or self-care (01) ==
LOC: LAB 09:42
PROVIDERS: Visit Provider Nurse Practitioner
DX: R42 Dizziness and giddiness (principal); E78.1 Pure hyperglyceridemia; F10.20 Alcohol dependence, uncomplicated; E78.2 Mixed hyperlipidemia; Z95.5 Presence of coronary angioplasty implant and graft; I25.10 Atherosclerotic heart disease of native coronary artery without angina pectoris; R06.00 Dyspnea, unspecified; K21.9 Gastro-esophageal reflux disease without esophagitis; E11.9 Type 2 diabetes mellitus without complications; I11.9 Hypertensive heart disease without heart failure
CPT/HCPCS: 36415; 80048; 80061; 80076; 84439; 84443; 85025

== ENCOUNTER 2024-04-08 11:07 | Emergency (ER) | payer OTHER, SELFPAY ==
[2024-04-08] VITALS (7 sets, daily range): BP systolic 76–133; BP diastolic 51–89; PULSE 78–95; RESP 13–16; TEMP 36.6–36.7; O2SAT 96–100; BMI 26.0
--- NOTE | 2024-04-08 11:14 | ECG_ITS ---
APPROVED REPORT Exam: Resting ECG HR:93 bpm ECG Measurements Heart Rate 93 AXES [place] 141 P -3 QRSd 95 QRS 63 QT 356 T 46 QTc 407 Conclusion SINUS RHYTHM NORMAL ECG Electronically signed by : PAM CASTELLON, 04/08/2024 15:56:51
[2024-04-08] MEDS: LACTATED RINGERS 1000ML 1,000 ML 999 ML IV ×2 (11:37→12:27)
[2024-04-08 11:44] LABS: Basophils % 0.6 % (0.1-2.0); Eosinophils # 0.2 K/mm3 (0.0-0.4); Eosinophils % 3.3 % (0.1-12.0); Hematocrit 43.8 % (42.0-52.0); Hemoglobin 15.3 g/dL (14.1-18.0); Lymphocytes # 0.8 K/mm3 (0.7-4.5); Lymphocytes % 12.2 % (10-50); Mean Corpuscular HGB Conc 34.9 g/dL (31.8-35.4); Mean Corpuscular Hemoglobin 33.1 pg (27.0-31.2); Mean Corpuscular Volume 94.8 fl (80-94); Mean Platelet Volume 6.6 fl (7.4-10.4); Monocytes # 0.6 K/mm3 (0.1-1.0); Monocytes % 9.9 % (1.7-9.3); Neutrophils # 4.6 K/mm3 (1.8-7.8); Neutrophils % 74.1 % (37.0-80.0); Platelet Count 284 K/mm3 (142-424); Red Blood Count 4.63 M/mm3 (4.60-6.20); White Blood Count 6.3 K/mm3 (4.8-10.8)
--- NOTE | 2024-04-08 11:51 | HMH.EDGENADL ---
Discharge Plan Disposition Patient Disposition: Home, Self-Care Condition: Fair Prescriptions Prescriptions: No Action aspirin 325 mg tablet 325 mg PO DAILY fenofibrate nanocrystallized 48 mg tablet 48 mg PO DAILY Qty: 30 11RF simvastatin 20 mg tablet See Rx Instructions .ROUTE .COMPLEX Qty: 90 1RF Dose Instruction: TAKE 1 TABLET BY MOUTH DAILY Rx Instructions: TAKE 1 TABLET BY MOUTH DAILY lisinopril 5 mg tablet See Rx Instructions .ROUTE .COMPLEX Qty: 90 3RF Dose Instruction: TAKE 1 TABLET BY MOUTH DAILY FOR BLOOD PRESSURE Rx Instructions: TAKE 1 TABLET BY MOUTH DAILY FOR BLOOD PRESSURE omega-3 acid ethyl esters [Lovaza] 1 gram capsule 2 cap PO BID 90 Days Qty: 360 0RF fluticasone propionate [Flonase Allergy Relief] 50 mcg/actuation spray,suspension 1 spray intranasal BID Qty: 16 0RF Rx Instructions: administer into each nostril Referrals Follow up/Referrals: James Gipson MD [Primary Care Provider] - See instructions Activity Restrictions/Add. Instructions Additional Instructions/Restrictions: You were evaluated in the emergency department today. Please make sure that you are staying hydrated. Eat a bland diet until your symptoms have resolved. Follow-up closely with your primary care provider for reassessment of your kidney function. Return to the emergency department for new or worsening symptoms. Clinical Impressions Clinical Impression: Dehydration, Hyponatremia, Diarrhea, SHEILA (acute kidney injury) Stand Alone Forms Stand Alone Forms: Work/School Release Instructions Patient Instructions: DI for Dehydration -- Adult, Acute Kidney Injury, DI for Diarrhea and Traveler's Diarrhea -- Adult Discharge ED Provider: Sally Agee General Adult HPI General Chief complaint: Recheck/Abnormal Lab/Rx Stated complaint: critical labs Time Seen by Provider: 04/08/24 11:14 Mode of Arrival: Ambulatory Source of Information: Patient and Spouse Limitations: No Limitations Description of Symptoms (Recalled from ER Triage Doc. by RN): Patient sent from Dr. Gipson's office related to increased creatinine. States he has had diarrhea for days on end. Also states that he usually drinks about 12-16 beers a day and hasn't had any ETOH in 4 days. History of Present Illness HPI narrative: This patient is a 59-year-old male with a history of hypertension, hyperlipidemia, CAD status post stenting, alcoholism presenting to the emergency department for evaluation with concern for abnormal labs. Patient reports that for weeks, he has had loose, watery diarrhea which has slightly improved today. He had abdominal cramping associated with this, and he is also felt nauseated and has not had much of an appetite. Has not been eating or drinking very much. Usually drinks 12-16 beers a day, but he has not had any alcohol in several days. He denies any withdrawal symptoms, such as anxiety, tremors, hallucinations, or other concerns. He denies any history of alcohol withdrawal in the past. He followed up with his primary care provider yesterday for the symptoms and had labs drawn. Labs reportedly showed an elevated creatinine, so his primary care provider called him and instructed him to come to the emergency department for evaluation. He states that overall he is feeling much better today with no fevers, abdominal pain, vomiting, and his stools have lightened up significantly today. Related Data Home Medications Medication Instructions Recorded Confirmed aspirin 325 mg tablet 325 mg PO DAILY 12/04/22 03/23/24 Previous Rx's Medication Instructions Recorded fenofibrate nanocrystallized 48 mg 48 mg PO DAILY #30 tabs 06/29/23 tablet fluticasone propionate 50 1 spray intranasal BID #16 grams 11/21/23 mcg/actuation nasal spray,suspension (Flonase Allergy Relief) simvastatin 20 mg tablet See Rx Instructions .Route 11/26/23 .COMPLEX #90 tabs lisinopril 5 mg tablet See Rx Instructions .Route 01/25/24 .COMPLEX #90 tabs omega-3 acid ethyl esters 1 gram 2 cap PO BID 90 days #360 caps 02/22/24 capsule (Lovaza) Allergies Allergy/AdvReac Type Severity Reaction Status Date / Time atorvastatin Allergy Mild Verified 03/23/24 09:19 [facility] Disclaimer: The information contained in this section may have been updated after the patient was seen, as this information can be updated by other users. Medical History Fatigue Alcoholism HLD (hyperlipidemia) HTN (hypertension) CAD (coronary artery disease) Surgical History Stented coronary artery Social History Smoking Status: Never smoker second hand exposure: No alcohol intake: current alcohol intake frequency: 3 or more drinks per day substance use type: denies use current occupational status: employed Travel in the last 8 weeks: Inside the [place] household members: spouse and family housing: house current occupational exposures/hazards: Yes caffeine: Yes ROS Obtained: Yes All systems reviewed & no additional complaints except as documented Physical Exam General General appearance: alert and in no apparent distress Head Head exam: atraumatic and normocephalic Eye Eye exam: Present normal appearance, PERRL and EOMI ENT ENT exam: Present mucous membranes dry and normal external ear exam Neck Neck exam: Present normal inspection, full ROM and trachea midline; Absent tenderness Chest Chest inspection: Present normal inspection and symmetric chest wall rise; Absent tenderness Respiratory Respiratory exam: Present normal lung sounds bilaterally; Absent respiratory distress, wheezes, stridor or accessory muscle use Cardiovascular Cardiovascular exam: Present regular rate and normal rhythm Abdominal Exam Abdominal exam: Present soft; Absent distention, tenderness or guarding Extremities Exam Extremities exam: Present normal inspection, full ROM and normal capillary refill; Absent tenderness or edema Back Exam Back exam: Present normal inspection and full ROM; Absent tenderness Neurological Exam Neurological exam: Present alert, oriented X3, CN II-XII intact and normal gait; Absent motor sensory deficit Psychiatric Psychiatric exam: Present normal affect and normal mood Skin Skin exam: Present warm and dry Medical Decision Making Medical Records Medical records reviewed: Yes I reviewed the patient's medical records. Guille Inquiry Pt receiving controlled substance: No Vital Signs: 04/08/24 11:09 04/08/24 11:30 04/08/24 12:02 Temperature 97.9 F Temperature Source Oral Pulse Rate 85 82 Pulse Rate [Radial] 95 H Respiratory Rate 16 Blood Pressure 76/51 L 99/57 L Blood Pressure [Right Arm] 111/81 Blood Pressure Mean 71 Blood Pressure Mean [Right Arm] 91 Blood Pressure Source [Right Arm] Automatic Cuff Blood Pressure Position [Right Arm] Sitting 02 Sat by Pulse Oximetry 99 98 98 Oxygen Delivery Method Room Air Room Air Room Air 04/08/24 12:30 04/08/24 13:01 04/08/24 13:31 Temperature Temperature Source Pulse Rate 86 78 80 Pulse Rate [Radial] Respiratory Rate Blood Pressure 127/84 133/89 118/78 Blood Pressure [Right Arm] Blood Pressure Mean Blood Pressure Mean [Right Arm] Blood Pressure Source [Right Arm] Blood Pressure Position [Right Arm] 02 Sat by Pulse Oximetry 100 96 100 Oxygen Delivery Method Room Air Room Air Room Air 04/08/24 15:27 Temperature 98.0 F Temperature Source Pulse Rate 80 Pulse Rate [Radial] Respiratory Rate 13 Blood Pressure 118/78 Blood Pressure [Right Arm] Blood Pressure Mean Blood Pressure Mean [Right Arm] Blood Pressure Source [Right Arm] Blood Pressure Position [Right Arm] 02 Sat by Pulse Oximetry Oxygen Delivery Method Room Air Lab Data Lab results reviewed: Yes I reviewed the patient's lab results. Lab Results 04/08/24 11:15: WBC 6.3, RBC 4.63, Hgb 15.3, Hct 43.8, MCV 94.8 H, MCH 33.1 H, MCHC 34.9, RDW 13.0, Plt Count 284, MPV 6.6 L, Neut % (Auto) 74.1, Lymph % (Auto) 12.2, [place] % (Auto) 9.9 H, Eos % (Auto) 3.3, Baso % (Auto) 0.6, Neut # (Auto) 4.6, Lymph # (Auto) 0.8, [place] # (Auto) 0.6, Eos # (Auto) 0.2, Baso # (Auto) 0.0, PT 10.3, INR 0.91, Sodium 129 L, Potassium 3.7, Chloride 93 L, Carbon Dioxide 23, Anion Gap 16.7 H, BUN 31 H, Creatinine 1.90 H, Estimated Creat Clear 55, Estimated GFR 37 L, Est GFR ( Amer) 44 L, Glucose 123 H, Calcium 9.1, Magnesium 2.0, Total Bilirubin 0.6, AST 47, ALT 56, Alkaline Phosphatase 56, Total Protein 7.6, Albumin 4.4, Globulin 3.2, Albumin/Globulin Ratio 1.4, Lipase 153 04/08/24 13:46: Urine Color Yellow, Urine Appearance Clear, Urine pH 6.0, Ur Specific [place] <= 1.005, Urine Protein Negative, Urine Glucose (UA) Negative, Urine Ketones Negative, Urine Blood Trace-i, Urine Nitrate Negative, Urine Bilirubin Negative, Urine Urobilinogen 0.2, Ur Leukocyte Esterase Negative, Urine RBC Occasional, Urine WBC 5-10, Ur Squamous Epith Cells 3-5, Urine Bacteria Trace, Hyaline Casts Occasional 04/08/24 11:15 04/08/24 11:15 Orders (Tests/Meds): ED MEDICATIONS Discontinued Medications Generic Name Dose Route Start Last Admin Trade Name Marizol PRN Reason Stop Dose Admin Lactated Ringer's 1,000 mls @ 999 mls/hr 04/08/24 11:29 04/08/24 11:37 Lactated Ringer's 1000 Ml Bag IV 04/08/24 12:29 999 mls/hr .Q1H1M ONE Administration Lactated Ringer's 1,000 mls @ 999 mls/hr 04/08/24 12:01 04/08/24 12:27 Lactated Ringer's 1000 Ml Bag IV 04/08/24 13:01 999 mls/hr .Q1H1M ONE Administration ORDERS Category Date Time Status Complete Blood Count Auto Diff Stat Lab 04/08/24 11:15 Completed Comprehensive Metabolic Panel Stat Lab 04/08/24 11:15 Completed Diarrhea 23 Panel, PCR Stat Lab 04/08/24 13:56 Received Lipase Stat Lab 04/08/24 11:15 Completed Magnesium Stat Lab 04/08/24 11:15 Completed PT/INR [Prothrombin Time INR] Stat Lab 04/08/24 11:15 Completed UA [Urinalysis and Microscopic] Stat Lab 04/08/24 13:46 Completed ECG Data Tracing #1: I reviewed this ECG and interpreted as documented below: Normal sinus rhythm with a ventricular rate of [address] changes concerning for ischemia. Normal axis and intervals. ECG initial impression date: 04/08/24 ECG initial impression time: 11:16 Medical Decision Narrative: In summary, this patient is a 59-year-old male presenting to the Emergency Department for evaluation of abnormal labs in the setting of poor oral intake and diarrhea for 1 week. Differential diagnoses considered include but are not limited to dehydration, SHEILA, electrolyte derangements, infectious colitis. Ruling out the most morbid conditions drove assessment. It should be noted patient's history includes daily alcohol abuse, hypertension, hyperlipidemia, and CAD which may or may not be at goal therapy. This complicates all aspects of care by increasing patient's risk for morbidity. On exam, the patient is resting comfortably in bed in no acute distress. Vitals are reassuring on cardiac telemetry. EKG was obtained and is reassuring. His abdominal exam is benign with no significant tenderness to suggest surgical intra-abdominal pathology. His diarrhea has significantly improved workup included CBC, CMP, lipase, INR, urinalysis, diarrhea panel if the patient is able to provide one, and EKG. Patient was given a bolus of IV fluids. Labs were obtained that demonstrated SHEILA with a creatinine of 1.9, mild hyponatremia, mildly elevated BUN and anion gap. I feel these things are related to volume depletion in the setting of diarrhea and the patient appearing clinically dry on exam. Diarrhea panel was sent and is pending. Urinalysis not concerning for infection, though he does have small amount of blood. On reassessment, patient had great improvement after administration of IV fluids and states that he is ready to go home. He notes that he is feeling much better, his cramping has resolved, and he is ready to go back to work. No complaints or concerns of abdominal pain or other issues at this time. He is tolerating oral intake. Given this, I feel that he is appropriate for discharge home with close follow-up with his primary care provider for monitoring of his creatinine. He was given instructions for supportive management of dehydration and SHEILA, strict return precautions, and he was discharged after all questions were answered. Critical Care Critical Care Time Critical Care Time: No
[2024-04-08 11:53] LABS: Chloride 93 mmol/L (98-107); Potassium 3.7 mmoL/L (3.5-5.1); Sodium 129 mmol/L (136-145)
--- NOTE | 2024-04-08 11:55 | PC.NURSE ---
PT PROVIDED WARM BLANKET AND PILLOW, AT BEDSIDE. CALL LIGHT WITHIN REACH
[2024-04-08 11:56] LABS: Alanine Aminotransferase 56 U/L (12-78); Albumin Level 4.4 g/dl (3.5-5.0); Albumin/Globulin Ratio 1.4 (1.1-1.8); Alkaline Phosphatase 56 U/L (38-126); Anion Gap 16.7 mEq/L (5-15); Aspartate Amino Transferase 47 U/L (17-59); Bilirubin,Total 0.6 mg/dl (0.2-1.3); Blood Urea Nitrogen 31 mg/dl (9-20); Calcium 9.1 mg/dl (8.4-10.2); Carbon Dioxide 23 mmol/L (22.0-30.0); Creatinine Clearance Estimated 55 mL/min (50-200); Estimated Glomerular Filt Rate 37 ml/min (>60); GFR (African American) 44 ML/MIN (>60); Globulin 3.2 g/dL (1.3-3.2); Glucose 123 mg/dl (74-100); Lipase 153 U/L (23-300); Total Protein,Serum 7.6 g/dl (6.3-8.2)
--- NOTE | 2024-04-08 12:23 | PC.NURSE ---
pt given some water and chips, okayd by Dr. Agee. Pt also given a urinal and is aware to give a urine sample.
[2024-04-08 12:52] LABS: INR 0.91 (0.9-1.1); Prothrombin Time 10.3 seconds (10.1-12.5)
--- NOTE | 2024-04-08 13:48 | PC.NURSE ---
UA sent to lab
[2024-04-08 13:54] LABS: Microscopic, Urine URINE MICROSCOPIC (MICROSCOPIC)
[2024-04-08 14:00] LABS: Adenovirus F 40/41, stool Not Detected (NotDetected); Astrovirus Not Detected (NotDetected); Clostridium Difficile A/B, PCR Not Detected (NotDetected); Cryptosporidium Not Detected (NotDetected); Cyclospora Cayetanesis Not Detected (NotDetected); Entamoeba histolytica Not Detected (NotDetected); Enteroaggregative E coli Not Detected (NotDetected); Enteropathogenic E coli Not Detected (NotDetected); Enterotoxigenic E coli Not Detected (NotDetected); Giardia lamblia Not Detected (NotDetected); Norovirus Not Detected (NotDetected); Plesimonas Shigalloides, PCR Not Detected (NotDetected); Rotavirus A Not Detected (NotDetected); Salmonella, PCR Not Detected (NotDetected); Sapovirus Not Detected (NotDetected); Shiga-like toxin E coli Not Detected (NotDetected); Shigella Enterovasive E coli Not Detected (NotDetected); Vibrio Cholerae Not Detected (NotDetected); Vibrio, PCR Not Detected (NotDetected); Yersinia Entercolitica, PCR Not Detected (NotDetected)
[2024-04-08 14:54] LABS: Appearance,Urine CLEAR (Clear); Bilirubin,Urine Negative (Negative); Blood, Urine TRACE-I (Negative); Color,Urine YELLOW (Yellow); Glucose,Urine (UA) Negative (Negative); Ketones,Urine Negative (Negative); Leukocyte Esterase,Urine Negative (Negative); Nitrate,Urine Negative (Negative); Protein,Urine Negative (Negative); Specific Gravity, Urine <= 1.005 (1.005-1.030); Urobilinogen,Urine 0.2 EU/dl (0.2)
[2024-04-08 15:11] LABS: Bacteria,Urine Trace /lpf; Hyaline Casts,Urine Occasional #/lpf (0)
[2024-04-08 15:12] LABS: RBC,Urine Occasional #/hpf (0-3)
[2024-04-08 17:29] LABS: Campylobacter Detected (NotDetected)
--- NOTE | 2024-04-08 17:30 | PC.NURSE ---
NOTIFICATION FROM [facility] IN LAB FOR STOOL RESULTS. PT NAME AND R/V. DR VICENTE NOTIFIED. NO NEW ORDERS
== END 2024-04-08 15:28 | disposition home or self-care (01) ==
PROVIDERS: Emergency Provider Emergency Medicine; PCP Internal Medicine Adolescent Medicine
DX: A04.5 Campylobacter enteritis (principal); E86.0 Dehydration; E87.1 Hypo-osmolality and hyponatremia; R19.7 Diarrhea, unspecified; N17.8 Other acute kidney failure; E78.5 Hyperlipidemia, unspecified; I11.9 Hypertensive heart disease without heart failure; I25.10 Atherosclerotic heart disease of native coronary artery without angina pectoris; F10.10 Alcohol abuse, uncomplicated; Z95.5 Presence of coronary angioplasty implant and graft
CPT/HCPCS: 80053; 81001; 83690; 83735; 85025; 85610; 87507; 93005; 96360; 96361; 99284; J7120

== ENCOUNTER 2024-04-18 10:03 | Outpatient (CLI) | payer OTHER, SELFPAY ==
--- NOTE | 2024-04-18 10:04 | CA_ITS ---
APPROVED REPORT EXAM: Comprehensive 2D, Doppler, and color-flow Echocardiogram [employer] Worker: Indy Faust CRT Ht: 6 ft 3 in Wt: 214lbs BSA: 2.26 BP: 118/76 mmHg Indications: Fatigue, CAD, Hyperlipidemia, Hypertension/HDD, chemo/radiation sinus cancer, stents, alcohol use 2D Dimensions LA Volume 32.00 mL LA Volume Index 13.90 mL/m2 (M/F) 16-34 M-Mode Dimensions RVDd 2.66 cm (0.9-2.6) LA Diam 4.58 cm (1.9-4.0) LVDd 4.71 cm (3.5-5.7) LVDs 2.70 cm (3.5-5.7) IVSd 1.49 cm (0.6-1.1) PWd 0.80 cm (0.6-1.1) EF (Teich) 73.80% FS 42.70% EDV (Teich) 102.90 mL ESV (Teich) 27.00 mL LV Diastology E Decel Time 150 (160-240 msec) E/A Ratio 0.60 MED A' 8.70 cm/s LAT A' 10.60 cm/s Aortic Valve AO Peak GR. 4.70 mmHg Mitral Valve MV E Max Ran. 66.0 (40-130 cm/s) MV A Velocity 109.0 (40-130 cm/s) E/A Ratio 0.60 MV PHT 44.0 ms Pulmonary Valve PV Peak Velocity 106.0 (50-150 cm/s) Tricuspid Valve TR P. Velocity 181.00 cm/s RAP Estimate 10.00 mmHg RVSP 23.10 mmHg Left Ventricle The left ventricle is normal size. The left ventricular systolic function is normal. The left ventricular ejection fraction is within the normal range. Proximal septal thickening is noted. There is normal LV segmental wall motion. Transmitral Doppler flow pattern suggests impaired LV relaxation. LVEF is 55%. Right Ventricle The right ventricle is normal size. The right ventricular systolic function is normal. Atria The left atrium size is normal. The right atrium size is normal. There is no Doppler evidence of interatrial shunt. Agitated saline administration demonstrates no evidence of interatrial shunt. Aortic Valve The aortic valve is mildly thickened. There is no aortic valvular stenosis. Trace aortic regurgitation. Mitral Valve The mitral valve leaflets are mildly thickened. Trace mitral regurgitation. No evidence of mitral valve stenosis. Tricuspid Valve The tricuspid valve leaflets are thin and pliable. Trace tricuspid regurgitation. There is insufficient TR jet to estimate RVSP. Pulmonic Valve The pulmonary valve is normal in structure. Trace pulmonic regurgitation. Great Vessels The aortic root is normal in size. The ascending aorta is normal in size. IVC is normal in size and collapses >50% with inspiration. Pericardium There is no pericardial effusion. Other Information Study Quality: Fair Conclusion Normal biventricular systolic function. No significant valvular stenosis or regurgitation. Agitated saline administration (bubble study) demonstrates no evidence of interatrial shunt. Electronically signed by : Em Steward MD 04/20/2024 22:36:19
--- NOTE | 2024-04-18 10:04 | CA_ITS ---
FINAL REPORT TECHNIQUE: Color Doppler, duplex Doppler and tinoco scale sonography of the bilateral neck arterial vasculature was performed. Velocities were measured in the carotid arteries. Stenosis evaluation based on the validated velocity criteria. CLINICAL HISTORY: DIZZINESS FINDINGS: The peak systolic velocity of the right common carotid artery is 106 cm/s. The peak systolic velocity of the right internal carotid artery is 101 cm/s and end diastolic velocity 48 cm/s. A small amount of plaque is present. The right external carotid artery is patent. The right vertebral artery is patent with antegrade flow. The peak systolic velocity of the left common carotid artery is 117 cm/s. The peak systolic velocity of the left internal carotid artery is 88 cm/s and end diastolic velocity 34 cm/s. A small amount of plaque is present. The left external carotid artery is patent.The left vertebral artery is patent with antegrade flow. IMPRESSION: Less than 50% bilateral carotid stenoses. Bilateral patent vertebral arteries with antegrade flow. If indicated, CTA or MRA could further evaluate. Reviewed, Interpreted and Dictated by Dion Oconnell III, MD Transcribed by Arlette Briscoe Authenticated and [facility]
== END 2024-04-18 23:59 | disposition home or self-care (01) ==
LOC: RT 10:04
PROVIDERS: Visit Provider Nurse Practitioner
DX: R42 Dizziness and giddiness (principal); I11.9 Hypertensive heart disease without heart failure; I25.10 Atherosclerotic heart disease of native coronary artery without angina pectoris; Z95.5 Presence of coronary angioplasty implant and graft; E78.1 Pure hyperglyceridemia; E78.2 Mixed hyperlipidemia; F10.20 Alcohol dependence, uncomplicated
CPT/HCPCS: 93306; 93880